=== PATIENT | male | born 1970 | race Caucasian/White ===

== ENCOUNTER 2017-05-12 19:07 | Emergency (ER) | payer MEDICAID, SELFPAY ==
[2017-05-12 19:11] VITALS: BP 117/82; PULSE 102; RESP 18; TEMP 37.5; O2SAT 97; BMI 23.6
--- NOTE | 2017-05-12 19:46 | HMH.EDGENADL ---
ED Disposition Clinical Impression: Influenza Disposition: Home, Self-Care Condition on Discharge: Good Prescriptions: Oseltamivir Phosphate [Tamiflu 75mg Capsule] 75 mg PO BID #10 cap Time of Disposition: 19:58 - Critical Care Critical Care Time: No Attestation: On 05/12/17, the high probability of a clinically significant, sudden or life threatening deterioration of the following system(s) required my full and direct attention, intervention and personal management. The time I documented below is in addition to time spent performing reported procedures but includes the following listed in this critical care notation. Medical Decision Making - Medical Records Medical records reviewed: Yes: I reviewed the patient's medical records. Vital Signs: 05/12/17 19:11 Temperature 99.5 F Temperature Source Oral Pulse Rate [Right Radial] 102 H Respiratory Rate 18 Blood Pressure [Right Arm] 117/82 Blood Pressure Mean [Right Arm] 93 Blood Pressure Source [Right Arm] Automatic Cuff Blood Pressure Position [Right Arm] Sitting 02 Sat by Pulse Oximetry 97 Oxygen Delivery Method Room Air - Lab Data Lab results reviewed: Yes: I reviewed the patient's lab results. Lab Results 05/12/17 19:20: Influenza Type A Ag Negative, Influenza Type B Ag Positive A - Aurelio Inquiry Pt receiving controlled substance: No - Reevaluation(s) Time: 19:30 Reevaluation #1: Upon reevaluation the patient appears medically stable, in mild distress only. Advised him of results obtained, need to alternate Motrin and Tylenol for fever control and drink plenty of fluids. We will start patient on instructed to follow-up with PCP if not better in 2-3 days. General Adult HPI - General Chief complaint: Nausea/Vomiting/Diarrhea Stated complaint: aching all over coughing, nausea Time Seen by Provider: 05/12/17 19:47 Mode of Arrival: EMS Source of Information: Patient Limitations: No Limitations Description of Symptoms (Recalled from ER Triage Doc. by RN): pt reports he is aching all over, coughing and feels like he is going to vomit - History of Present Illness HPI narrative: Patient is here with body aches, subjective fever, sore throat, cough and congestion for the past 2 days. MD complaint: Fever, sore throat, runny nose Onset (ago): day(s) (2) Location: face Severity: moderate Severity scale (1-10): 5 Quality: stabbing, aching Consistency: intermittent Relieving factors: none Exacerbating factors: movement (1) Associated symptoms: denies other symptoms - Related Data Home Medications Medication Instructions Recorded Confirmed Omeprazole Magnesium [Prilosec Otc 20 mg PO DAILY 05/12/17 05/12/17 20mg Tab] Previous Rx's Medication Instructions Recorded Oseltamivir Phosphate [Tamiflu 75 mg PO BID #10 cap 05/12/17 75mg Capsule] Allergies Allergy/AdvReac Type Severity Reaction Status Date / Time No Known Allergies Allergy Verified 05/12/17 19:15 [facility] History I have reviewed the patient's past medical history: Yes - *Social History Alcohol Intake: never - Psychiatric History Expresses thoughts of harming self/others: None Suicide Plan Description: No Plan ROS Obtained: Yes All systems reviewed & no additional complaints - Constitutional Constitutional: Reports body ache, Reports chills, Reports fatigue, Reports fever(s) - ENT Ears, Nose, Mouth, and Throat: Reports hoarseness, Reports nasal congestion, Reports post nasal drip, Reports sore throat Physical Exam - General General appearance: alert, in distress (Mild) - Head Head exam: atraumatic, normocephalic, normal inspection - Eye Eye exam: Present: normal appearance, PERRL, EOMI - ENT ENT exam: Present: normal oropharynx, mucous membranes moist, TM's normal bilaterally, normal external ear exam, other (Pharyngeal erythema, boggy nasal mucosa with yellowish discharge) - Neck Neck exam: Present: normal inspection, full ROM,
== END 2017-05-12 20:00 | disposition home or self-care (01) ==
PROVIDERS: Emergency Provider Emergency Medicine; Family Provider Emergency Medicine
DX: J11.1 Influenza due to unidentified influenza virus with other respiratory manifestations (principal)
CPT/HCPCS: 87275; 87276; 99282

== ENCOUNTER 2017-05-18 04:07 | Emergency (ER) | payer MEDICAID, SELFPAY ==
[2017-05-18 04:13] VITALS: BP 120/78; PULSE 98; RESP 18; TEMP 36.6; O2SAT 97; BMI 23.6
--- NOTE | 2017-05-18 05:01 | HMH.EDNVD ---
ED Disposition Clinical Impression: Vomiting Qualifiers: Vomiting type: vomiting of fecal matter Nausea presence: with nausea Qualified Code(s): R11.13 - Vomiting of fecal matter Disposition: Home, Self-Care Condition on Discharge: Good Instructions: DI for Nausea -- Adult Additional Instructions: fluids and see pcp for follow up Prescriptions: Ondansetron HCl [Zofran 4mg Tab] 4 mg PO Q8H #20 tab - Critical Care Critical Care Time: No Attestation: On 05/18/17, the high probability of a clinically significant, sudden or life threatening deterioration of the following system(s) required my full and direct attention, intervention and personal management. The time I documented below is in addition to time spent performing reported procedures but includes the following listed in this critical care notation. Medical Decision Making - Medical Records Medical records reviewed: Yes: I reviewed the patient's medical records. Vital Signs: 05/18/17 04:13 Temperature 97.9 F Temperature Source Oral Pulse Rate [Right Radial] 98 H Respiratory Rate 18 Blood Pressure [Right Arm] 120/78 Blood Pressure Mean [Right Arm] 92 Blood Pressure Source [Right Arm] Automatic Cuff Blood Pressure Position [Right Arm] Sitting 02 Sat by Pulse Oximetry 97 Oxygen Delivery Method Room Air - Lab Data Lab results reviewed: Yes: I reviewed the patient's lab results. Lab Results 05/18/17 04:50: WBC 3.2 L, RBC 4.39 L, Hgb 14.2, Hct 38.7 L, MCV 88.2, MCH 32.3 H, MCHC 36.6 H, RDW 13.4, Plt Count 128 L, MPV 7.6, Neut % (Auto) 58.5, Lymph % (Auto) 32.9, [place] % (Auto) 7.7, Eos % (Auto) 0.7, Baso % (Auto) 0.1, Neut # (Auto) 1.9, Lymph # (Auto) 1.1, [place] # (Auto) 0.3, Eos # (Auto) 0.0, Baso # (Auto) 0.0 05/18/17 04:50: Sodium 141, Potassium 3.6, Chloride 103, Carbon Dioxide 28, Anion Gap 13.6, BUN 10, Creatinine 0.93, Estimated Creat Clear 104, Estimated GFR 88, Est GFR ( Amer) 107, Glucose 118 H, Calcium 8.2 L, Total Bilirubin 1.3 H, AST 20, ALT 25, Alkaline Phosphatase 72, Total Protein 6.7, Albumin 3.7, Globulin 3.0, Albumin/Globulin Ratio 1.2 Result diagrams: 05/18/17 04:50 05/18/17 04:50 Orders (Tests/Meds): ED MEDICATIONS Generic Name Dose Route Start Last Admin Trade Name Sujit PRN Reason Stop Dose Admin Sodium Chloride 1,000 mls @ 999 mls/hr 05/18/17 05:00 05/18/17 04:51 Sod Chloride 0.9% 1000ml Bag IV 05/18/17 06:00 999 mls/hr .Q1H1M KP Administration - Aurelio Inquiry Pt receiving controlled substance: No Nausea/Vomiting/Diarrhea HPI - General Chief complaint: Nausea/Vomiting/Diarrhea Stated complaint: vomiting Time Seen by Provider: 05/18/17 05:01 Mode of Arrival: Ambulatory Source of Information: Patient, Medical Record Limitations: No Limitations Description of Symptoms (Recalled from ER Triage Doc. by RN): PT REPORTS VOMITING THAT STARTED AT 4 AM AND HE FEELS LIKE HES BURNING UP. - History of Present Illness HPI Narrative: pt with recent flu and finished tamiflu and had n/v carlee LEBLANC complaint: nausea, vomiting Onset (ago): day(s) Associated Abdominal Pain: No Severity: moderate - Related Data Previous Rx's Medication Instructions Recorded Ondansetron HCl [Zofran 4mg Tab] 4 mg PO Q8H #20 tab 05/18/17 Allergies Allergy/AdvReac Type Severity Reaction Status Date / Time No Known Allergies Allergy Verified 05/12/17 19:15 [facility] History I have reviewed the patient's past medical history: Yes - *Social History Alcohol Intake: never - Psychiatric History Expresses thoughts of harming self/others: None Suicide Plan Description: No Plan ROS Obtained: Yes All systems reviewed & no additional complaints - Constitutional Constitutional: Denies fever(s), Reports poor appetite - Eyes Eyes: Denies change in vision - ENT Ears, Nose, Mouth, and Throat: Denies sore throat - Cardiovascular Cardiovascular: Denies chest pain at rest - Respiratory Respiratory: No
--- NOTE | 2017-05-18 05:04 | ED_ITS ---
ED Disposition Clinical Impression: Vomiting Qualifiers: Vomiting type: vomiting of fecal matter Nausea presence: with nausea Qualified Code(s): R11.13 - Vomiting of fecal matter Disposition: Home, Self-Care Condition on Discharge: Good Instructions: DI for Nausea -- Adult Additional Instructions: fluids and see pcp for follow up Prescriptions: Ondansetron HCl [Zofran 4mg Tab] 4 mg PO Q8H #20 tab - Critical Care Critical Care Time: No Attestation: On 05/18/17, the high probability of a clinically significant, sudden or life threatening deterioration of the following system(s) required my full and direct attention, intervention and personal management. The time I documented below is in addition to time spent performing reported procedures but includes the following listed in this critical care notation. Medical Decision Making - Medical Records Medical records reviewed: Yes: I reviewed the patient's medical records. Vital Signs: 05/18/17 04:13 Temperature 97.9 F Temperature Source Oral Pulse Rate [Right Radial] 98 H Respiratory Rate 18 Blood Pressure [Right Arm] 120/78 Blood Pressure Mean [Right Arm] 92 Blood Pressure Source [Right Arm] Automatic Cuff Blood Pressure Position [Right Arm] Sitting 02 Sat by Pulse Oximetry 97 Oxygen Delivery Method Room Air - Lab Data Lab results reviewed: Yes: I reviewed the patient's lab results. Lab Results 05/18/17 04:50: WBC 3.2 L, RBC 4.39 L, Hgb 14.2, Hct 38.7 L, MCV 88.2, MCH 32.3 H, MCHC 36.6 H, RDW 13.4, Plt Count 128 L, MPV 7.6, Neut % (Auto) 58.5, Lymph % (Auto) 32.9, [place] % (Auto) 7.7, Eos % (Auto) 0.7, Baso % (Auto) 0.1, Neut # ( Auto) 1.9, Lymph # (Auto) 1.1, [place] # (Auto) 0.3, Eos # (Auto) 0.0, Baso # (Auto ) 0.0 05/18/17 04:50: Sodium 141, Potassium 3.6, Chloride 103, Carbon Dioxide 28, Anion Gap 13.6, BUN 10, Creatinine 0.93, Estimated Creat Clear 104, Estimated GFR 88, Est GFR ( Amer) 107, Glucose 118 H, Calcium 8.2 L, Total Bilirubin 1.3 H, AST 20, ALT 25, Alkaline Phosphatase 72, Total Protein 6.7, Albumin 3.7, Globulin 3.0, Albumin/Globulin Ratio 1.2 Result diagrams: 05/18/17 04:50 05/18/17 04:50 Orders (Tests/Meds): ED MEDICATIONS Generic Name Dose Route Start Last Admin Trade Name Freq PRN Reason Stop Dose Admin Sodium Chloride 1,000 mls @ 999 mls/hr 05/18/17 05:00 05/18/17 04:51 Sod Chloride 0.9% 1000ml Bag IV 05/18/17 06:00 999 mls/hr .Q1H1M KP Administration - Aurelio Inquiry Pt receiving controlled substance: No Nausea/Vomiting/Diarrhea HPI - General Chief complaint: Nausea/Vomiting/Diarrhea Stated complaint: vomiting Time Seen by Provider: 05/18/17 05:01 Mode of Arrival: Ambulatory Source of Information: Patient, Medical Record Limitations: No Limitations Description of Symptoms (Recalled from ER Triage Doc. by RN): PT REPORTS VOMITING THAT STARTED AT 4 AM AND HE FEELS LIKE HES BURNING UP. - History of Present Illness HPI Narrative: pt with recent flu and finished tamiflu and had n/v carlee LEBLANC complaint: nausea, vomiting Onset (ago): day(s) Associated Abdominal Pain: No Severity: moderate - Related Data Previous Rx's Medication Instructions Recorded Ondansetron HCl [Zofran 4mg Tab] 4 mg PO Q8H #20 tab 05/18/17 Allergies Allergy/AdvReac Type Severity Reaction Status Date / Time
[2017-05-18 05:11] LABS: Basophils % 0.1 % (0.1-2.0); Eosinophils % 0.7 % (0.1-12.0); Hematocrit 38.7 % (42.0-52.0); Hemoglobin 14.2 g/dL (14.1-18.0); Lymphocytes # 1.1 K/mm3 (0.7-4.5); Lymphocytes % 32.9 K/mm3 (10-50); Mean Corpuscular HGB Conc 36.6 g/dL (31.8-35.4); Mean Corpuscular Hemoglobin 32.3 pg (27.0-31.2); Mean Corpuscular Volume 88.2 fl (80-94); Mean Platelet Volume 7.6 fl (7.4-10.4); Monocytes # 0.3 K/mm3 (0.1-1.0); Monocytes % 7.7 % (1.7-9.3); Neutrophils # 1.9 K/mm3 (1.8-7.8); Neutrophils % 58.5 % (37.0-80.0); Platelet Count 128 K/mm3 (142-424); Red Blood Count 4.39 M/mm3 (4.60-6.20); Red Cell Distribution Width 13.4 % (11.5-17.5); White Blood Count 3.2 K/mm3 (4.8-10.8)
[2017-05-18 05:12] LABS: Alanine Aminotransferase 25 U/L (12-78); Albumin Level 3.7 gm/dL (3.4-5.0); Albumin/Globulin Ratio 1.2 (1.1-1.8); Alkaline Phosphatase 72 U/L (46-116); Anion Gap 13.6 mEq/L (5-15); Aspartate Amino Transferase 20 U/L (15-37); Bilirubin,Total 1.3 mg/dL (0.2-1.0); Blood Urea Nitrogen 10 mg/dL (7-18); Calcium 8.2 mg/dL (8.5-10.1); Carbon Dioxide 28 mmol/L (21.0-32.0); Chloride 103 mmol/L (98-107); Creatinine Clearance Estimated 104 mL/min (0-300); Creatinine,Serum 0.93 mg/dL (0.70-1.30); Estimated Glomerular Filt Rate 88 ml/min (>60); GFR (African American) 107 ML/MIN (>60); Glucose 118 mg/dL (74-106); Potassium 3.6 mmoL/L (3.5-5.1); Sodium 141 mmol/L (136-145); Total Protein,Serum 6.7 gm/dL (6.4-8.2)
== END 2017-05-18 05:18 | disposition home or self-care (01) ==
PROVIDERS: Emergency Provider Emergency Medicine; Family Provider Emergency Medicine
DX: R11.13 Vomiting of fecal matter (principal); R19.7 Diarrhea, unspecified
CPT/HCPCS: 80053; 85025; 96365; 99282

== ENCOUNTER → 2017-07-13 15:06 | Outpatient (CLI) | payer MEDICAID, SELFPAY ==
[2017-07-13 17:55] LABS: Alanine Aminotransferase 20 U/L (12-78); Albumin Level 4.4 gm/dL (3.4-5.0); Albumin/Globulin Ratio 1.5 (1.1-1.8); Alkaline Phosphatase 71 U/L (46-116); Anion Gap 8.2 mEq/L (5-15); Aspartate Amino Transferase 16 U/L (15-37); Bilirubin,Total 1.7 mg/dL (0.2-1.0); Blood Urea Nitrogen 17 mg/dL (7-18); Calcium 9.2 mg/dL (8.5-10.1); Carbon Dioxide 31 mmol/L (21.0-32.0); Chloride 103 mmol/L (98-107); Creatinine,Serum 1.03 mg/dL (0.70-1.30); Estimated Glomerular Filt Rate 78 ml/min (>60); GFR (African American) 95 ML/MIN (>60); Globulin 2.9 gm/dl (1.3-3.2); Glucose 99 mg/dL (74-106); Lipase 137 u/L (73-393); Potassium 4.2 mmoL/L (3.5-5.1); Sodium 138 mmol/L (136-145); Total Protein,Serum 7.3 gm/dL (6.4-8.2)
[2017-07-13 18:24] LABS: Basophils % 0.4 % (0.1-2.0); Eosinophils % 0.7 % (0.1-12.0); Hematocrit 45.9 % (42.0-52.0); Hemoglobin 16.4 g/dL (14.1-18.0); Lymphocytes # 1.9 K/mm3 (0.7-4.5); Lymphocytes % 31.1 K/mm3 (10-50); Mean Corpuscular HGB Conc 35.8 g/dL (31.8-35.4); Mean Corpuscular Hemoglobin 32.2 pg (27.0-31.2); Mean Platelet Volume 7.7 fl (7.4-10.4); Monocytes # 0.4 K/mm3 (0.1-1.0); Monocytes % 5.7 % (1.7-9.3); Neutrophils # 3.8 K/mm3 (1.8-7.8); Neutrophils % 62.1 % (37.0-80.0); Platelet Count 179 K/mm3 (142-424); Red Blood Count 5.09 M/mm3 (4.60-6.20); Red Cell Distribution Width 12.8 % (11.5-17.5); White Blood Count 6.2 K/mm3 (4.8-10.8)
== END ==
PROVIDERS: Visit Provider Emergency Medicine
DX: R53.1 Weakness (principal)
CPT/HCPCS: 80053; 83690; 85025

== ENCOUNTER → 2017-08-09 09:24 | Outpatient (CLI) | payer MEDICAID, SELFPAY ==
--- NOTE | 2017-08-09 09:27 | US_ITS ---
HISTORY: ITS.REASON: RUQ pain ORDERING PHYSICIAN: Ronald Hoffman MD PATIENT AGE: 46 years FINDINGS: Prior cholecystectomy. No ductal dilatation. Common bile duct measures 2 mm. PANCREAS: Unremarkable. No obvious mass or abnormal fluid collection. No ductal dilatation LIVER: No focal liver lesions demonstrated. Homogeneous echogenicity. No intrahepatic biliary ductal dilatation evident RIGHT KIDNEY: Unremarkable. Normal size and echogenicity. No hydronephrosis GALLBLADDER: Surgically absent. IMPRESSION: Prior cholecystectomy. Otherwise negative right upper quadrant ultrasound
== END ==
PROVIDERS: Family Provider Emergency Medicine; PCP Emergency Medicine; Visit Provider Emergency Medicine
DX: R10.11 Right upper quadrant pain (principal)
CPT/HCPCS: 76705

== ENCOUNTER 2020-01-06 16:54 | Emergency (ER) | payer OTHER, SELFPAY ==
[2020-01-06 17:23] VITALS: BP 120/80; PULSE 98; RESP 12; TEMP 37; O2SAT 97; BMI 27.7
--- NOTE | 2020-01-06 17:46 | HMH.EDUTC ---
[facility] [place] Disposition Clinical Impression: Muscle spasm Disposition: Home, Self-Care Condition on Discharge: Good Instructions: DI for Muscle Spasm, Naproxen, Cyclobenzaprine Additional Instructions: *Naproxen as prescribed as needed for pain/inflammation *Not additional anti-inflammatory like motrin, aleve, advil with the above amount of Naproxen. You can still take Tylenol every 4 hours as needed if you need something else for pain *Ice 20 minutes every 2 hours for the first 48 hours after the initial injury followed by moist heat every 20 minutes 3-4 times a day to affected area *Muscle relaxer every 8 hours as needed for muscle spasms but remember, it WILL cause drowsiness You cannot take it and drive, operate machinery or care for small children. *Keep this area active, no movement leads to more stiffness, However take it easy and avoid heavy lifting pushing or pulling *Follow up with you family doctor if no improvement for further treatment Return if needed Straight to ER if any life threatening symptoms Prescriptions: Cyclobenzaprine HCl [Flexeril 10mg tablet] 10 mg PO TID PRN #12 tab PRN Reason: Muscle Spasm [facility] Nap[facility]en [Naproxen 500mg tab] 500 mg PO BID PRN 7 Days #14 tab PRN Reason: Moderate Pain Transmission Status: Pending to [facility] Referrals: Ronald Hoffman MD [Primary Care Provider] - As needed Time of Disposition: 17:53 Medical Decision Making - Aurelio Inquiry Pt receiving controlled substance: No Aurelio was queried for this patient: No Vital Signs: 01/06/20 17:23 Temperature 98.6 F Temperature Source Oral Pulse Rate [Right Brachial] 98 H Respiratory Rate 12 Blood Pressure [Right Arm] 120/80 Blood Pressure Mean [Right Arm] 93 Blood Pressure Source [Right Arm] Automatic Cuff Blood Pressure Position [Right Arm] Sitting 02 Sat by Pulse Oximetry 97 Oxygen Delivery Method Room Air [facility] [place] HPI - General Stated complaint: Left Shoulder pain Time Seen by Provider: 01/06/20 17:46 Mode of Arrival: Ambulatory Source of Information: Patient Limitations: No Limitations Description of Symptoms (Recalled from Triage Doc. by RN): PATIENT C/O LEFT SHOULDER PAIN THAT OCCASIONALLY RADIATES DOWN HIS ARM. 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 States that he feels like he is having muscle spasms in his left shoulder and radiates down into left shoulder and upper arm at times State that it feels tight and he has not fallen or did anything to hurt it States that it was fine and he woke up with it feeling stiff and having spasms - Related Data Previous Rx's Medication Instructions Recorded Cyclobenzaprine HCl [Flexeril 10mg 10 mg PO TID PRN #12 tab 01/06/20 tablet] Naproxen [Naproxen 500mg tab] 500 mg PO BID PRN 7 Days #14 tab 01/06/20 Allergies Allergy/AdvReac Type Severity Reaction Status Date / Time No Known Allergies Allergy Verified 11/13/19 14:57 - Worker's Comp Is this a Worker's Comp case?: No [facility] History - Hepatitis A Screen Drug use history?: No High risk sexual behaviors?: No History of sexually transmitted infection?: No Currently employed?: No Childcare worker?: No Do you have indoor plumbing?: Yes Do you have electricity?: Yes Attestation statement:: This patient has been screened for Hepatitis A risk factors. I have reviewed the patient's past medical history: Yes Medical History: Reports:: Gastroesophageal Reflux Disease(GERD) Denies:: Cancer, Diabetes Mellitus Type 1, Diabetes Mellitus Type 2, MRSA Comment: stomach issues Laterality Cases: Bilateral: Tonsil
[2020-01-06 17:54] VITALS: BP 120/80; PULSE 98; RESP 12; TEMP 37; O2SAT 97
== END 2020-01-06 17:58 | disposition home or self-care (01) ==
PROVIDERS: Emergency Provider Nurse Practitioner; PCP Emergency Medicine
DX: M62.838 Other muscle spasm (principal); M25.512 Pain in left shoulder; K21.9 Gastro-esophageal reflux disease without esophagitis; Z90.09 Acquired absence of other part of head and neck
CPT/HCPCS: 99201

== ENCOUNTER 2020-02-11 14:15 | Emergency (ER) | payer OTHER, SELFPAY ==
[2020-02-11 14:16] VITALS: BP 128/85; PULSE 79; RESP 19; TEMP 36.5; O2SAT 97; BMI 26.6
--- NOTE | 2020-02-11 14:28 | HMH.EDGENADL ---
ED Disposition Clinical Impression: Shoulder pain Qualifiers: Chronicity: chronic Laterality: left Qualified Code(s): M25.512 - Pain in left shoulder Rotator cuff arthropathy Qualifiers: Laterality: left Qualified Code(s): M12.812 - Other specific arthropathies, not elsewhere classified, left shoulder Disposition: Home, Self-Care Condition on Discharge: Good Instructions: DI for Rotator Cuff Injury Additional Instructions: Follow-up with orthopedics in clinic for further evaluation of possible rotator cuff injury/tear. Take Tylenol/ibuprofen as needed for pain. Wear a sling for comfort as needed. Referrals: Ronald Hoffman MD [Primary Care Provider] - Jose Barclay MD [Staff Physician] - - Critical Care Critical Care Time: No Attestation: On , the high probability of a clinically significant, sudden or life threatening deterioration of the following system(s) required my full and direct attention, intervention and personal management. The time I documented below is in addition to time spent performing reported procedures but includes the following listed in this critical care notation. Medical Decision Making - Aurelio Inquiry Pt receiving controlled substance: No Vital Signs: 02/11/20 14:16 Temperature 97.7 F Temperature Source Oral Pulse Rate [Left Radial] 79 Respiratory Rate 19 Blood Pressure [Right Arm] 128/85 Blood Pressure Mean [Right Arm] 99 Blood Pressure Source [Right Arm] Automatic Cuff Blood Pressure Position [Right Arm] Sitting 02 Sat by Pulse Oximetry 97 Oxygen Delivery Method Room Air Medical Decision Narrative: 49-year-old male who comes into the emergency department for evaluation of left shoulder pain that has been chronic for the past month. Has been seen in urgent care and by primary care provider who diagnosed him with possible rotator cuff injury/musculoskeletal strain. Denies any new trauma since prior imaging. Physical exam significant for tenderness palpation of left shoulder and upper scapula with no visible bony abnormalities or skin changes. No additional imaging indicated at this time. Provided patient with a sling for comfort and provided referral to orthopedics clinic. Advised on return cautions and to continue to take [id number] pain medications as needed. Patient voiced understanding is agreeable plan to discharge. General Adult HPI - General Stated complaint: lt shoulder pain no ao Time Seen by Provider: 02/11/20 14:25 Mode of Arrival: Ambulatory Source of Information: Patient Limitations: No Limitations Description of Symptoms (Recalled from ER Triage Doc. by RN): pt c/o left shoulder pain that goes to his left wrist. Denies any injury. Has seen his PCP and [facility] with no relief in pain. - History of Present Illness HPI narrative: 49-year-old male who comes into the emergency department for evaluation of left shoulder pain that has been present for the past month. Patient states he was seen 1 month ago in urgent care and told that he had a sprained shoulder or possible rotator cuff injury and was given muscle relaxers. States that he has continued to take Tylenol/Motrin along with the muscle relaxers without significant changes in symptoms. Reports continued pain with range of motion of the left shoulder. Denies any new injuries or trauma. Denies any chest pain, difficulty breathing, fevers, chills, rashes, numbness, or any other symptoms at this time. - Related Data Previous Rx's Medication Instructions Recorded Cyclobenzaprine HCl [Flexeril 10mg 10 mg PO TID PRN #12 tab 01/06/20 tablet] Naproxen [Naproxen 500mg tab] 500 mg PO BID PRN 7 Days #14 tab 01/06/20 Allergies Allergy/AdvReac Type Severity Reaction Status Date / Time No Known Allergies Allergy Verified 11/13/19 14:57 [facility] History - Hepatitis A Screen Drug use history?: No High risk sexual behaviors?: No History of sexually transmitted infection?: No Currently
[2020-02-11 14:37] VITALS: BP 141/90; PULSE 89; RESP 19; TEMP 36.5; O2SAT 98
== END 2020-02-11 14:38 | disposition home or self-care (01) ==
LOC: ER 14:34
PROVIDERS: Emergency Provider Emergency Medicine; PCP Emergency Medicine
DX: M25.512 Pain in left shoulder (principal); M12.812 Other specific arthropathies, not elsewhere classified, left shoulder; K21.9 Gastro-esophageal reflux disease without esophagitis
CPT/HCPCS: 99281

== ENCOUNTER 2020-02-15 04:32 | Emergency (ER) | payer OTHER, SELFPAY ==
[2020-02-15 04:37] VITALS: BP 127/81; PULSE 79; RESP 16; TEMP 36.8; O2SAT 97; BMI 25.7
--- NOTE | 2020-02-15 04:42 | XR_ITS ---
PROCEDURE: XR SHOULDER LT MIN 2V CLINICAL INDICATION: pain COMPARISON: CR [id number] VIEWS from 09/10/2014 FINDINGS: No fracture or dislocation. No lytic or blastic change. There is normal mineralization. The joint spaces are well-preserved. No significant degenerative/arthritic changes. No erosive changes evident. Other findings:None. IMPRESSION: No acute findings. Dictated by: Luis Pinedo MD 02/15/2020 05:18 Luis Pinedo MD in [place] 02/15/2020 05:18
--- NOTE | 2020-02-15 04:58 | HMH.EDGENADL ---
ED Disposition Clinical Impression: Rotator cuff tendinitis Qualifiers: Laterality: left Qualified Code(s): M75.82 - Other shoulder lesions, left shoulder Disposition: Home, Self-Care Condition on Discharge: Good Instructions: DI for Shoulder Pain Additional Instructions: Ibuprofen for pain. Prednisone as prescribed. Follow-up with Dr. Cutler in the office as scheduled. Prescriptions: Ibuprofen [Ibuprofen 800mg Tab] 800 mg PO Q8HP PRN #15 tab PRN Reason: Moderate Pain Transmission Status: Pending to [facility] predniSONE [Prednisone 20mg Tab] 20 mg PO BID #10 tab Transmission Status: Pending to [facility] Referrals: Ronald Hoffman MD [Primary Care Provider] - - Critical Care Critical Care Time: No Attestation: On 02/15/20, the high probability of a clinically significant, sudden or life threatening deterioration of the following system(s) required my full and direct attention, intervention and personal management. The time I documented below is in addition to time spent performing reported procedures but includes the following listed in this critical care notation. Medical Decision Making - Medical Records Medical records reviewed: Yes: I reviewed the patient's medical records. MR Comment: Seen by his PCP on 11/13/2019 for bilateral shoulder pain. Given an injection of Toradol and Decadron which he says helped. Seen in the urgent treatment center here on 01/06/2020 for left shoulder pain. Treated with naproxen and Flexeril. Seen here in the emergency department on 02/11/2020 for left shoulder pain. No medication treatment. Referred to orthopedics. Has an appointment to see Dr. Cutler for orthopedic evaluation on 03/04/2020. - Aurelio Inquiry Pt receiving controlled substance: No Vital Signs: 02/15/20 04:37 Temperature 98.2 F Temperature Source Oral Pulse Rate [Right Brachial] 79 Respiratory Rate 16 Blood Pressure [Right Arm] 127/81 Blood Pressure Mean [Right Arm] 96 Blood Pressure Source [Right Arm] Automatic Cuff Blood Pressure Position [Right Arm] Sitting 02 Sat by Pulse Oximetry 97 Oxygen Delivery Method Room Air Orders (Tests/Meds): ORDERS Category Date Time Status XR shoulder LT min 2V Stat Exams 02/15/20 04:42 Taken - Radiology Data #1 Image(s): Shoulder Image Reviewed: Yes I reviewed the patient's radiology image Preliminary Findings: Normal/NAD Medical Decision Narrative: The patient has some features of a cervical radiculopathy, but mostly has features of rotator cuff pathology. I favor shoulder pathology as opposed to cervical pathology based on his examination findings. However, corticosteroid should help either. General Adult HPI - General Chief complaint: PAIN Stated complaint: L shoulder pain Time Seen by Provider: 02/15/20 05:05 Mode of Arrival: Family Vehicle Limitations: No Limitations Description of Symptoms (Recalled from ER Triage Doc. by RN): pt states he was seen in the ed last week and diagnosed with a possible torn rotator cuff and to follow up with dr cutler. however, he hasn't seen dr cutler yet and the pain is getting worse. taking tylenol and ibuprofen for pain control without relief; no new injury - History of Present Illness HPI narrative: Patient has been having pain in his left shoulder for months. In the past 4 days it has worsened. It is there most of the time. It sometimes wakes him up. It radiates into his left clavicle, left shoulder blade, into his neck, and down his left arm. There is no numbness or tingling. He has increased pain with movement of his left shoulder. No unusual activity or trauma. 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 No other physical activity. No chest pain, no shortness of breath. - Related Data Previous Rx's Medication Instructions Recorded Cyclobenzaprine HCl [Flexeril 10mg 10 mg PO TID PRN #12 tab 01/06/20 tablet] Naproxen [Naproxen 500mg tab]
[2020-02-15 05:40] VITALS: BP 130/78; PULSE 80; RESP 14; TEMP 36.8; O2SAT 98
== END 2020-02-15 05:42 | disposition home or self-care (01) ==
PROVIDERS: Emergency Provider Emergency Medicine; PCP Emergency Medicine
DX: M75.82 Other shoulder lesions, left shoulder (principal); K21.9 Gastro-esophageal reflux disease without esophagitis
CPT/HCPCS: 73030; 96372; 99282

== ENCOUNTER 2020-03-17 00:49 | Emergency (ER) | payer OTHER, SELFPAY ==
[2020-03-17 00:50] VITALS: BP 115/81; PULSE 81; RESP 16; TEMP 36.7; O2SAT 97; BMI 26.6
--- NOTE | 2020-03-17 01:22 | XR_ITS ---
PROCEDURE: XR SHOULDER LT MIN 2V CLINICAL INDICATION: left shoulder pain COMPARISON: CR [id number] VIEWS from 09/10/2014 CR XR SHOULDER LT MIN 2V from 02/15/2020 FINDINGS: No fracture or dislocation. No lytic or blastic change. There is normal mineralization. The joint spaces are well-preserved. No significant degenerative/arthritic changes. No erosive changes evident. Other findings:None. IMPRESSION: No acute findings. Dictated by: Luis Pinedo MD 03/17/2020 05:20 Luis Pinedo MD in [place] 03/17/2020 05:20
--- NOTE | 2020-03-17 01:25 | HMH.EDUPEXT ---
ED Disposition Clinical Impression: Shoulder pain Qualifiers: Chronicity: acute Laterality: left Qualified Code(s): M25.512 - Pain in left shoulder Disposition: Home, Self-Care Condition on Discharge: Good Instructions: DI for Shoulder Pain Additional Instructions: use meds and see pcp or ortho for follow up Prescriptions: Meloxicam [Mobic 15 mg tab] 15 mg PO DAILY #7 tab Transmission Status: Pending to [id number] Referrals: Ronald Hoffman MD [Primary Care Provider] - - Critical Care Critical Care Time: No Attestation: On 03/17/20, the high probability of a clinically significant, sudden or life threatening deterioration of the following system(s) required my full and direct attention, intervention and personal management. The time I documented below is in addition to time spent performing reported procedures but includes the following listed in this critical care notation. Medical Decision Making - Medical Records Medical records reviewed: Yes: I reviewed the patient's medical records. - Aurelio Inquiry Pt receiving controlled substance: No Vital Signs: 03/17/20 00:50 Temperature 98.1 F Temperature Source Oral Pulse Rate [Left Radial] 81 Respiratory Rate 16 Blood Pressure [Right Arm] 115/81 Blood Pressure Mean [Right Arm] 92 Blood Pressure Source [Right Arm] Automatic Cuff Blood Pressure Position [Right Arm] Sitting 02 Sat by Pulse Oximetry 97 Oxygen Delivery Method Room Air - Lab Data Lab results reviewed: Yes: I reviewed the patient's lab results. Orders (Tests/Meds): ORDERS Category Date Time Status XR shoulder LT min 2V Stat Exams 03/17/20 01:22 Ordered - Radiology Data #1 Image(s): Shoulder Image Reviewed: Yes I reviewed the patient's radiology image Preliminary Findings: No Fracture Seen Upper Extremity HPI - General Chief Complaint: Extremity Injury, Upper Stated Complaint: knot on left arm Time Seen by Provider: 03/17/20 01:00 Mode of Arrival: Ambulatory Source of Information: Patient, Medical Record Limitations: Physical Limitations Description of Symptoms (Recalled from ER Triage Doc. by RN): pt stated he was moving heavy furniture earlier in the week and felt a pop in his left shoulder. pt stated he has a history of popping in his shoulders but now reports pain with movement over the last 3 days and stated he i feel like there is a knot in the back of my left arm when i move it. pt denies any other pain at this time - History of Present Illness HPI narrative: after lifting had pop and pain lt shoulder MD complaint: injury to: left, shoulder Onset (ago): day(s) Other Extremity Injury: Left: shoulder Handedness: right Place: home Severity: moderate Context: injury Associated symptoms: denies other symptoms - Related Data Previous Rx's Medication Instructions Recorded Meloxicam [Mobic 15 mg tab] 15 mg PO DAILY #7 tab 03/17/20 Allergies Allergy/AdvReac Type Severity Reaction Status Date / Time No Known Allergies Allergy Verified 03/17/20 01:31 [facility] History - Hepatitis A Screen Drug use history?: No High risk sexual behaviors?: No History of sexually transmitted infection?: No Currently employed?: No Childcare worker?: No Do you have indoor plumbing?: No Do you have electricity?: Yes Attestation statement:: This patient has been screened for Hepatitis A risk factors. I have reviewed the patient's past medical history: Yes Medical History: Reports:: Gastroesophageal Reflux Disease(GERD) Denies:: Cancer, Diabetes Mellitus Type 1, Diabetes Mellitus Type 2, MRSA Comment: stomach issues Laterality Cases: Bilateral: Tonsillectomy Other Surgeries: Yes: Other (gallbladder) Amputation: No Fractures: No Comment: coleycystectomy - Social History Smoking Status: Never smoker Tobacco Type: smokeless tobacco # Packs/Day (cigarettes): 1 Alcohol Intake: never Alcohol Intake Frequency:: other Substance Use Ty
--- NOTE | 2020-03-17 01:29 | PC.NURSE ---
Pt returned from xray
[2020-03-17 01:37] VITALS: BP 115/81; PULSE 81; RESP 16; TEMP 36.7; O2SAT 97
== END 2020-03-17 01:39 | disposition home or self-care (01) ==
PROVIDERS: Emergency Provider Emergency Medicine; PCP Emergency Medicine
DX: M25.512 Pain in left shoulder (principal); K21.9 Gastro-esophageal reflux disease without esophagitis
CPT/HCPCS: 73030; 99282

== ENCOUNTER → 2020-05-02 15:57 | Outpatient (CLI) | payer OTHER, SELFPAY | PROVIDERS: PCP Emergency Medicine; Visit Provider Orthopaedic Surgery | DX: M25.512 Pain in left shoulder (principal) ==

== ENCOUNTER → 2020-05-09 07:32 | Outpatient (CLI) | payer OTHER, SELFPAY ==
--- NOTE | 2020-05-09 07:32 | MR_ITS ---
PROCEDURE: MR SHOULDER LT WO CON CLINICAL INDICATION: LT SHOULDER PAIN, NO INJURY, PRIOR XRAYS. COMPARISON: CR XR SHOULDER LT MIN 2V from 03/17/2020 TECHNIQUE: Routine multiplanar multi echo sequences are performed without gadolinium enhancement. FINDINGS: There is mild subacromial stenosis with downsloping acromion with a subacromial space of mm. No evidence of rotator cuff tear. No labral tear evident. There are mild osteoarthritic changes of the glenohumeral joint. Small amount fluid is present in the bicipital tendon she and may suggest mild tenosynovitis. The bicipital tendon is in place. IMPRESSION: Mild subacromial stenosis with mild osteoarthritis and suspected mild tenosynovitis of the bicipital tendon. No evidence of rotator cuff tear or labral tear. Dictated by: Luis Pinedo MD 05/10/2020 08:35 Luis Pinedo MD in [place] 05/10/2020 08:35
== END ==
PROVIDERS: PCP Emergency Medicine; Visit Provider Orthopaedic Surgery
DX: S46.912A Strain of unspecified muscle, fascia and tendon at shoulder and upper arm level, left arm, initial encounter (principal)
CPT/HCPCS: 73221

== ENCOUNTER 2020-10-05 09:58 | Emergency (ER) | payer OTHER, SELFPAY ==
[2020-10-05 10:00] VITALS: BP 131/81; PULSE 86; RESP 19; TEMP 36.8; O2SAT 99; BMI 27.6
--- NOTE | 2020-10-05 10:19 | HMH.EDUTC ---
[facility] [place] Disposition Clinical Impression: Spider bite Qualifiers: Encounter type: initial encounter Injury intent: undetermined intent Qualified Code(s): T63.304A - Toxic effect of unspecified spider venom, undetermined, initial encounter Disposition: Home, Self-Care Condition on Discharge: Good Instructions: Trimethoprim/Sulfamethoxazole (Alternative Therapy), Mupirocin, DI for Spider Bites Additional Instructions: *Start antibiotic(s) immediately and be sure to take as ordered for the FULL length of time although you may be feeling better or start to see improvement in the next 24-48 hours *Monitor closely. Outlined redness so that you can monitor easier. Follow up immediately for new or worsening symptoms including but not limited to redness, swelling, streaking from site fever or chills. *Warm compress 15 minutes 3-4 times day *Never squeeze or pop these on your own. Seek immediate medical attention next time this occurs *Monitor Temp. Tylenol every 4 hours as needed and ibuprofen every 6 hours as needed (as long as your primary care doctor has told you that it is ok to take both. For fever, aches, pain. ER if no less that 101 despite Tylenol and ibuprofen Follow up with your family doctor/primary care physician in the next 48-72 hours if no improvement Prescriptions: Sulfamethoxazole/Trimethoprim [Bactrim DS tablet] 1 each PO BID 7 Days #14 tab Transmission Status: Received by [facility] # Mupirocin [Bactroban 2% Ointment 22gm tube] 1 applicatio TP TID 10 Days #1 tube Transmission Status: Received by [facility] # cephALEXin [cephALEXin 500mg capsule*] 500 mg PO Q6H 7 Days #28 cap Transmission Status: Received by [facility] # Referrals: Ronald Hoffman MD [Primary Care Provider] - As needed Time of Disposition: 10:27 Medical Decision Making - Aurelio Inquiry Pt receiving controlled substance: No Aurelio was queried for this patient: No Vital Signs: 10/05/20 10:00 10/05/20 10:40 Temperature 98.3 F 98.3 F Temperature Source Oral Pulse Rate 86 Pulse Rate [Right Brachial] 86 Respiratory Rate 19 19 Blood Pressure 131/81 Blood Pressure [Right Arm] 131/81 Blood Pressure Mean [Right Arm] 97 Blood Pressure Source [Right Arm] Automatic Cuff Blood Pressure Position [Right Arm] Sitting 02 Sat by Pulse Oximetry 99 Oxygen Delivery Method Room Air [facility] [place] HPI - General Stated complaint: spider bite on Rt foot Time Seen by Provider: 10/05/20 10:20 Mode of Arrival: Ambulatory Source of Information: Patient Limitations: No Limitations Description of Symptoms (Recalled from Triage Doc. by RN): PATIENT C/O SPIDER BITE TO TOP OF RIGHT FOOT X 2 DAYS HEENT Symptoms (Recalled from RN notes): No Resp Symptoms (Recalled from RN notes): No Skin Symptoms (Recalled from RN notes): Yes MS Symptoms (Recalled from RN notes): No Functional Status (Recalled from RN notes): WNL - History of Present Illness Provider Complaint: Patient state that he has been having problems with spiders in his house State that he thinks one bite him on the top of his right foot State that he has had a red raised area there that has had some drianage from it for the past couple of day State that the redness around the bite is starting to spread so he came in to get checked - Related Data Previous Rx's Medication Instructions Recorded Mupirocin [Bactroban 2% Ointment 1 applicatio TP TID 10 Days #1 tube 10/05/20 22gm tube] Sulfamethoxazole/Trimethoprim 1 each PO BID 7 Days #14 tab 10/05/20 [Bactrim DS tablet] cephALEXin [cephALEXin 500mg 500 mg PO Q6H 7 Days #28 cap 10/05/20 capsule*] Allergies Allergy/AdvReac Type Severity Reaction Status Date / Time No Known Allergies Allergy Verified 07/07/20 14:16 - Worker's Comp Is this a Worker's Comp case?: No [facility] History - Hepatitis A Screen Drug use history?: No High risk sexual behaviors?: No History of sexually transmitted
[2020-10-05 10:40] VITALS: BP 131/81; PULSE 86; RESP 19; TEMP 36.8; O2SAT 99
== END 2020-10-05 10:44 | disposition home or self-care (01) ==
PROVIDERS: Emergency Provider Nurse Practitioner; PCP Emergency Medicine
DX: T63.301A Toxic effect of unspecified spider venom, accidental (unintentional), initial encounter (principal); K21.9 Gastro-esophageal reflux disease without esophagitis; S90.861A Insect bite (nonvenomous), right foot, initial encounter; W57.XXXA Bitten or stung by nonvenomous insect and other nonvenomous arthropods, initial encounter; Y92.019 Unspecified place in single-family (private) house as the place of occurrence of the external cause
CPT/HCPCS: 99202; G0463

== ENCOUNTER 2020-12-26 01:45 | Emergency (ER) | payer OTHER, SELFPAY ==
[2020-12-26 01:58] VITALS: BP 116/72; PULSE 92; RESP 18; TEMP 36.9; O2SAT 96; BMI 28.2
--- NOTE | 2020-12-26 02:13 | XR_ITS ---
PROCEDURE INFORMATION: Exam: XR Chest Exam date and time: 12/26/2020 2:13 AM Age: 50 years old Clinical indication: Left-sided; Patient HX: Left sided chest pain TECHNIQUE: Imaging protocol: XR of the chest. Views: 2 views. COMPARISON: CR XR CHEST 2V 02/08/2019 1:10 AM FINDINGS: Lungs: Biapical scarring. Mild chronic interstitial coarsening. Mild linear subsegmental atelectasis near the bilateral lung bases. No consolidation. No overt pulmonary edema. Pleural spaces: No pleural effusion. No pneumothorax. Heart/Mediastinum: Normal heart size. Bones/joints: Unremarkable. IMPRESSION: Mild bibasilar atelectasis.
--- NOTE | 2020-12-26 02:13 | HMH.EDGENADL ---
ED Disposition Clinical Impression: Arthralgia Qualifiers: Joint pain location: unspecified Qualified Code(s): M25.50 - Pain in unspecified joint Disposition: Home, Self-Care Condition on Discharge: Good Instructions: DI for Acute Pain -- Adult Additional Instructions: use meds and see pcp as needed Prescriptions: Meloxicam [Mobic 15 mg tab] 15 mg PO DAILY #10 tab Transmission Status: Pending to [facility] #[id number] Referrals: Ronald Hoffman MD [Primary Care Provider] - - Critical Care Critical Care Time: No Attestation: On 12/26/20, the high probability of a clinically significant, sudden or life threatening deterioration of the following system(s) required my full and direct attention, intervention and personal management. The time I documented below is in addition to time spent performing reported procedures but includes the following listed in this critical care notation. Medical Decision Making - Medical Records Medical records reviewed: Yes: I reviewed the patient's medical records. - Aurelio Inquiry Pt receiving controlled substance: No Vital Signs: 12/26/20 01:58 Temperature 98.4 F Temperature Source Oral Pulse Rate [Right] 92 H Respiratory Rate 18 Blood Pressure [Right Arm] 116/72 Blood Pressure Mean [Right Arm] 86 Blood Pressure Source [Right Arm] Automatic Cuff Blood Pressure Position [Right Arm] Supine 02 Sat by Pulse Oximetry 96 Oxygen Delivery Method Room Air - Lab Data Lab results reviewed: Yes: I reviewed the patient's lab results. Lab Results 12/26/20 02:10: Urine Color Yellow, Urine Appearance Clear, Urine pH 6.5, Ur Specific [place] 1.020, Urine Protein Negative, Urine Glucose (UA) Negative, Urine Ketones Negative, Urine Blood Negative, Urine Nitrate Negative, Urine Bilirubin Negative, Urine Urobilinogen 0.2, Ur Leukocyte Esterase Negative, Urine WBC Occasional, Ur Squamous Epith Cells Occasional, Urine Bacteria Trace 12/26/20 02:15: WBC 3.7 L, RBC 4.30 L, Hgb 14.1, Hct 40.9 L, MCV 95.3 H, MCH 32.9 H, MCHC 34.5, RDW 13.7, Plt Count 139 L, MPV 8.5, Neut % (Auto) 57.8, Lymph % (Auto) 30.8, [place] % (Auto) 10.1 H, Eos % (Auto) 0.6, Baso % (Auto) 0.8, Neut # (Auto) 2.1, Lymph # (Auto) 1.1, [place] # (Auto) 0.4, Eos # (Auto) 0.0, Baso # (Auto) 0.0 12/26/20 02:15: Sodium 141, Potassium 3.5, Chloride 103, Carbon Dioxide 29, Anion Gap 12.5, BUN 13, Creatinine 1.00, Estimated Creat Clear 111, Estimated GFR 80, Est GFR ( Amer) 97, Glucose 113 H, Calcium 8.9, Total Bilirubin 1.5 H, AST 23, ALT 12, Alkaline Phosphatase 59, Total Protein 6.3, Albumin 3.8, Globulin 2.5, Albumin/Globulin Ratio 1.5, Procalcitonin 0.060 12/26/20 02:15: Plasma/Serum Alcohol < 10 Result diagrams: 12/26/20 02:15 12/26/20 02:15 Orders (Tests/Meds): ED MEDICATIONS Generic Name Dose Route Start Last Admin Trade Name Freq PRN Reason Stop Dose Admin Sodium Chloride 1,000 mls @ 999 mls/hr 12/26/20 02:15 12/26/20 02:21 Sod Chlor 0.9% 1000ml Bag IV 12/26/20 03:15 999 mls/hr .Q1H1M KP Administration Discontinued Medications Generic Name Dose Route Start Last Admin Trade Name Freq PRN Reason Stop Dose Admin Ketorolac Tromethamine 30 mg 12/26/20 02:05 12/26/20 02:20 Ketorolac 30mg/Ml Vial IV 12/26/20 02:06 30 mg ONCE ONE Administration ORDERS Category Date Time Status CXR 2 view (NOT portable) [XR chest 2V] Stat Exams 12/26/20 02:13 Taken Complete Blood Count Auto Diff Stat Lab 12/26/20 02:15 Results Erythrocyte Sedimentation Rate Stat Lab 12/26/20 02:15 Results - Radiology Data #1 Image(s): Chest Image Reviewed: Yes I reviewed the patient's radiology image Preliminary Findings: Abnormal (see report ) Medical Decision Narrative: nonspecific changes General Adult HPI - General Chief complaint: PAIN Stated complaint: Left side pain rib cage area Time Seen by Provider: 12/26/20 02:05 Mode of Arrival: Ambulatory Source of Information: Patient
[2020-12-26 02:21] LABS: Microscopic, Urine URINE MICROSCOPIC (MICROSCOPIC)
[2020-12-26 02:22] LABS: Appearance,Urine CLEAR (Clear); Bilirubin,Urine Negative (Negative); Blood, Urine Negative (Negative); Color,Urine YELLOW (Yellow); Glucose,Urine (UA) Negative (Negative); Ketones,Urine Negative (Negative); Leukocyte Esterase,Urine Negative (Negative); Nitrate,Urine Negative (Negative); PH,Urine 6.5 (5.0-8.5); Protein,Urine Negative (Negative); Urobilinogen,Urine 0.2 EU/dl (0.2)
[2020-12-26 02:24] LABS: Basophils % 0.8 % (0.1-2.0); Eosinophils % 0.6 % (0.1-12.0); Hematocrit 40.9 % (42.0-52.0); Hemoglobin 14.1 g/dL (14.1-18.0); Lymphocytes # 1.1 K/mm3 (0.7-4.5); Lymphocytes % 30.8 % (10-50); Mean Corpuscular HGB Conc 34.5 g/dL (31.8-35.4); Mean Corpuscular Hemoglobin 32.9 pg (27.0-31.2); Mean Corpuscular Volume 95.3 fl (80-94); Mean Platelet Volume 8.5 fl (7.4-10.4); Monocytes # 0.4 K/mm3 (0.1-1.0); Monocytes % 10.1 % (1.7-9.3); Neutrophils # 2.1 K/mm3 (1.8-7.8); Neutrophils % 57.8 % (37.0-80.0); Platelet Count 139 K/mm3 (142-424); Red Cell Distribution Width 13.7 % (11.5-17.5); White Blood Count 3.7 K/mm3 (4.8-10.8)
[2020-12-26 02:34] LABS: Bacteria,Urine Trace /lpf; Squamous Epithelial Cell,Urine Occasional #/hpf (0-5); WBC,Urine Occasional #/hpf (0-3)
[2020-12-26 02:41] LABS: Alanine Aminotransferase 12 U/L (12-78); Albumin Level 3.8 g/dl (3.5-5.0); Albumin/Globulin Ratio 1.5 (1.1-1.8); Alkaline Phosphatase 59 U/L (38-126); Anion Gap 12.5 mEq/L (5-15); Aspartate Amino Transferase 23 U/L (17-59); Bilirubin,Total 1.5 mg/dl (0.2-1.3); Blood Urea Nitrogen 13 mg/dl (9-20); Calcium 8.9 mg/dl (8.4-10.2); Carbon Dioxide 29 mmol/L (22.0-30.0); Chloride 103 mmol/L (98-107); Creatinine Clearance Estimated 111 mL/min (50-200); Estimated Glomerular Filt Rate 80 ml/min (>60); GFR (African American) 97 ML/MIN (>60); Globulin 2.5 g/dL (1.3-3.2); Glucose 113 mg/dl (74-100); Potassium 3.5 mmoL/L (3.5-5.1); Sodium 141 mmol/L (136-145); Total Protein,Serum 6.3 g/dl (6.3-8.2)
[2020-12-26 02:50] LABS: Ethyl Alcohol < 10 mg/dl (0-10)
[2020-12-26 03:05] LABS: Erythrocyte Sedimentation Rate 19 mm/hr (0-15)
[2020-12-26 03:08] VITALS: BP 110/73; PULSE 83; RESP 19; TEMP 36.8; O2SAT 98
== END 2020-12-26 03:10 | disposition home or self-care (01) ==
PROVIDERS: Emergency Provider Emergency Medicine; PCP Emergency Medicine
DX: M25.512 Pain in left shoulder (principal); M79.622 Pain in left upper arm; M25.562 Pain in left knee; M25.552 Pain in left hip; K21.9 Gastro-esophageal reflux disease without esophagitis
CPT/HCPCS: 71046; 80053; 81001; 84145; 85025; 85651; 96365; 96375; 99283

== ENCOUNTER 2021-05-12 05:52 | Emergency (ER) | payer OTHER, SELFPAY ==
[2021-05-12 05:50] VITALS: BP 134/95; PULSE 94; RESP 17; TEMP 36.5; O2SAT 96; BMI 27.4
--- NOTE | 2021-05-12 05:53 | ECG_ITS ---
APPROVED REPORT Exam: Resting ECG HR:94 bpm ECG Measurements Heart Rate 94 AXES MS 214 P 46 QRSd 94 QRS 17 QT 356 T 42 QTc 445 Conclusion Sinus rhythm with 1st degree AV block Otherwise normal ECG Electronically signed by : Mark Corado MD 05/12/2021 19:54:38
--- NOTE | 2021-05-12 06:06 | XR_ITS ---
PROCEDURE INFORMATION: Exam: XR Chest Exam date and time: 05/12/2021 6:06 AM Age: 50 years old Clinical indication: Pain; Shortness of breath; Chest pressure; Additional info: Cp, SOA TECHNIQUE: Imaging protocol: XR of the chest. Views: 2 views. COMPARISON: CR XR CHEST 2V 12/26/2020 2:11 AM FINDINGS: Lungs: Hyperinflation and interstitial prominence. Pleural spaces: No pleural effusion. Heart/Mediastinum: Normal configuration of the heart. Bones/joints: Stable compression deformities and mild degenerative change in the thoracic spine. When correlating with the previous study, no significant interval changes are present. IMPRESSION: Stable appearance of the chest, not significantly changed from 12/26/20.
[2021-05-12 06:30] VITALS: BP 140/85; PULSE 104; RESP 18; O2SAT 93
[2021-05-12 06:33] LABS: Coronavirus 19, PCR Not Detected (NotDetected); Influenza A, PCR Not Detected (NotDetected); Influenza B, PCR Not Detected (NotDetected)
--- NOTE | 2021-05-12 06:54 | HMH.EDCP ---
ED Disposition Clinical Impression: Chest pain Qualifiers: Chest pain type: unspecified Qualified Code(s): R07.9 - Chest pain, unspecified Disposition: Home, Self-Care Condition on Discharge: Good Instructions: DI for Atypical Chest Pain Additional Instructions: see card for follow up this week Referrals: Ronald Hoffman MD [Primary Care Provider] - - Critical Care Critical Care Time: No Attestation: On 05/12/21, the high probability of a clinically significant, sudden or life threatening deterioration of the following system(s) required my full and direct attention, intervention and personal management. The time I documented below is in addition to time spent performing reported procedures but includes the following listed in this critical care notation. Medical Decision Making - Medical Records Medical records reviewed: Yes: I reviewed the patient's medical records. - Aurelio Inquiry Pt receiving controlled substance: No Vital Signs: 05/12/21 05:50 05/12/21 06:30 Temperature 97.7 F Temperature Source Oral Pulse Rate 104 H Pulse Rate [Right] 94 H Respiratory Rate 17 18 Blood Pressure 140/85 Blood Pressure [Right Arm] 134/95 H Blood Pressure Mean [Right Arm] 108 Blood Pressure Source [Right Arm] Automatic Cuff 02 Sat by Pulse Oximetry 96 93 L Oxygen Delivery Method Room Air Room Air - Lab Data Lab results reviewed: Yes: I reviewed the patient's lab results. Lab Results 05/12/21 05:55: Troponin I < 0.01, C-Reactive Protein 2.1 05/12/21 05:55: Sodium 136, Potassium 3.1 L, Chloride 101, Carbon Dioxide 27, Anion Gap 11.1, BUN 8 L, Creatinine 0.90, Estimated Creat Clear 120, Estimated GFR 90, Est GFR ( Amer) 109, Glucose 165 H, Calcium 9.0, Magnesium 1.8, Total Bilirubin 1.8 H, Direct Bilirubin 0.1, Conjugated Bilirubin 0.0, Indirect Bilirubin 1.7 H, Unconjugated Bilirubin 1.7 H, AST 28, ALT 21, Alkaline Phosphatase 54, NT-Pro-B Natriuret Pep 43.6, Total Protein 6.4, Albumin 4.3 05/12/21 06:15: SARS-CoV-2 (PCR) Not detected, Influenza A Untype (PCR) Not detected, Influenza Type B (PCR) Not detected 05/12/21 06:35: WBC 4.1 L, RBC 4.78, Hgb 15.8, Hct 46.9, MCV 98.1 H, MCH 33.1 H, MCHC 33.7, RDW 14.1, Plt Count 154, MPV 8.0, Neut % (Auto) 57.5, Lymph % (Auto) 33.7, [place] % (Auto) 6.3, Eos % (Auto) 0.9, Baso % (Auto) 1.7, Neut # (Auto) 2.4, Lymph # (Auto) 1.4, [place] # (Auto) 0.3, Eos # (Auto) 0.0, Baso # (Auto) 0.1 Result diagrams: 05/12/21 06:35 05/12/21 05:55 Orders (Tests/Meds): ED MEDICATIONS Discontinued Medications Generic Name Dose Route Start Last Admin Trade Name Marcosq PRN Reason Stop Dose Admin Aspirin 324 mg 05/12/21 06:06 05/12/21 06:26 Aspirin 81mg Chewable Tablet PO 05/12/21 06:07 324 mg ONCE ONE Administration Sodium Chloride 1,000 mls @ 999 mls/hr 05/12/21 06:15 05/12/21 06:26 Sod Chlor 0.9% 1000ml Bag IV 05/12/21 07:15 999 mls/hr .Q1H1M KP Administration Nitroglycerin 0.4 mg 05/12/21 06:06 05/12/21 06:26 Nitroglycerin 0.4mg Sl Tablet SL 05/12/21 06:07 0.4 mg ONCE ONE Administration Nitroglycerin 1 gm 05/12/21 06:16 05/12/21 06:27 Nitroglycerin 1 Gm Ointment TD 05/12/21 06:17 1 gm ONCE ONE Administration Ondansetron HCl 4 mg 05/12/21 06:16 05/12/21 06:26 Ondansetron 4mg/2ml Vial IV 05/12/21 06:17 4 mg ONCE ONE Administration ORDERS Category Date Time Status C-Reactive Protein Stat Lab 05/12/21 05:55 Results Erythrocyte Sedimentation Rate Stat Lab 05/12/21 05:55 Received Procalcitonin Stat Lab 05/12/21 05:55 Results Troponin I Q3H Lab 05/12/21 09:15 Ordered Troponin I Q3H Lab 05/12/21 12:15 Ordered Troponin I Stat Lab 05/12/21 05:55 Results - Radiology Data #1 Image(s): Chest Image Reviewed: Yes I have reviewed radiologist's interpretation Preliminary Findings: Normal/NAD - ECG Data Tracing #1 Normal Sinus Rhythm: Yes Ischemic changes: non-specific ST-T wave changes M
--- NOTE | 2021-05-12 06:55 | PC.NURSE ---
ok to removed c-collar per md
[2021-05-12 07:20] LABS: Basophils # 0.1 K/mm3 (0-0.2); Basophils % 1.7 % (0.1-2.0); Eosinophils % 0.9 % (0.1-12.0); Hematocrit 46.9 % (42.0-52.0); Hemoglobin 15.8 g/dL (14.1-18.0); Lymphocytes # 1.4 K/mm3 (0.7-4.5); Lymphocytes % 33.7 % (10-50); Mean Corpuscular HGB Conc 33.7 g/dL (31.8-35.4); Mean Corpuscular Hemoglobin 33.1 pg (27.0-31.2); Mean Corpuscular Volume 98.1 fl (80-94); Monocytes # 0.3 K/mm3 (0.1-1.0); Monocytes % 6.3 % (1.7-9.3); Neutrophils # 2.4 K/mm3 (1.8-7.8); Neutrophils % 57.5 % (37.0-80.0); Platelet Count 154 K/mm3 (142-424); Red Blood Count 4.78 M/mm3 (4.60-6.20); Red Cell Distribution Width 14.1 % (11.5-17.5); White Blood Count 4.1 K/mm3 (4.8-10.8)
[2021-05-12 07:22] LABS: Alanine Aminotransferase 21 U/L (12-78); Albumin Level 4.3 g/dl (3.5-5.0); Alkaline Phosphatase 54 U/L (38-126); Anion Gap 11.1 mEq/L (5-15); Aspartate Amino Transferase 28 U/L (17-59); Bilirubin,Direct 0.1 mg/dl (0.0-0.4); Bilirubin,Indirect 1.7 mg/dL (0.0-0.9); Bilirubin,Total 1.8 mg/dl (0.2-1.3); Bilirubin,Unconjugated 1.7 mg/dL (0.0-1.1); Blood Urea Nitrogen 8 mg/dl (9-20); Carbon Dioxide 27 mmol/L (22.0-30.0); Chloride 101 mmol/L (98-107); Creatinine Clearance Estimated 120 mL/min (50-200); Estimated Glomerular Filt Rate 90 ml/min (>60); GFR (African American) 109 ML/MIN (>60); Glucose 165 mg/dl (74-100); Magnesium 1.8 mg/dl (1.6-2.3); Potassium 3.1 mmoL/L (3.5-5.1); Sodium 136 mmol/L (136-145); Total Protein,Serum 6.4 g/dl (6.3-8.2)
[2021-05-12 07:27] LABS: C-Reactive Protein 2.1 mg/L (0-4)
[2021-05-12 07:33] LABS: NT Pro Brain Natriuretic Pep. 43.6 pg/mL (0-125)
[2021-05-12 07:40] LABS: Troponin I < 0.01 ng/ml (0.00-0.034)
[2021-05-12 07:46] VITALS: BP 116/80; PULSE 103; RESP 17; TEMP 36.6; O2SAT 96
[2021-05-12 07:58] LABS: Erythrocyte Sedimentation Rate 7 mm/hr (0-15)
== END 2021-05-12 07:47 | disposition home or self-care (01) ==
PROVIDERS: Emergency Provider Emergency Medicine; PCP Emergency Medicine
DX: R07.9 Chest pain, unspecified (principal); R42 Dizziness and giddiness; K21.9 Gastro-esophageal reflux disease without esophagitis; Z20.822 Contact with and (suspected) exposure to COVID-19
CPT/HCPCS: 71046; 80048; 80076; 83735; 83880; 84145; 84484; 85025; 85651; 86140; 93005; 96365; 96375; 99284; C9803; J2405; U0003; U0005

== ENCOUNTER → 2022-05-24 11:00 | Outpatient (CLI) | payer OTHER, SELFPAY ==
[2022-05-24 18:55] LABS: Basophils % 0.8 % (0.1-2.0); Eosinophils # 0.1 K/mm3 (0.0-0.4); Eosinophils % 1.3 % (0.1-12.0); Hematocrit 46.1 % (42.0-52.0); Hemoglobin 16.3 g/dL (14.1-18.0); Lymphocytes # 1.7 K/mm3 (0.7-4.5); Lymphocytes % 31.1 % (10-50); Mean Corpuscular HGB Conc 35.4 g/dL (31.8-35.4); Mean Corpuscular Hemoglobin 32.1 pg (27.0-31.2); Mean Corpuscular Volume 90.7 fl (80-94); Mean Platelet Volume 8.2 fl (7.4-10.4); Monocytes # 0.3 K/mm3 (0.1-1.0); Monocytes % 5.6 % (1.7-9.3); Neutrophils # 3.3 K/mm3 (1.8-7.8); Neutrophils % 61.3 % (37.0-80.0); Platelet Count 223 K/mm3 (142-424); Red Blood Count 5.08 M/mm3 (4.60-6.20); Red Cell Distribution Width 13.6 % (11.5-17.5); White Blood Count 5.3 K/mm3 (4.8-10.8)
[2022-05-24 18:59] LABS: Alanine Aminotransferase 28 U/L (12-78); Albumin Level 4.7 g/dl (3.5-5.0); Albumin/Globulin Ratio 1.8 (1.1-1.8); Alkaline Phosphatase 83 U/L (38-126); Anion Gap 13.1 mEq/L (5-15); Aspartate Amino Transferase 32 U/L (17-59); Bilirubin,Total 1.8 mg/dl (0.2-1.3); Blood Urea Nitrogen 14 mg/dl (9-20); Calcium 9.2 mg/dl (8.4-10.2); Carbon Dioxide 30 mmol/L (22.0-30.0); Chloride 100 mmol/L (98-107); Chol/HDL Ratio 5.5 (1-3.5); Cholesterol 149 mg/dl (140-200); Estimated Glomerular Filt Rate 90 ml/min (>60); GFR (African American) 109 ML/MIN (>60); Globulin 2.6 g/dL (1.3-3.2); Glucose 105 mg/dl (74-100); HDL Cholesterol 27 mg/dl (40-60); Potassium 4.1 mmoL/L (3.5-5.1); Sodium 139 mmol/L (136-145); Total Protein,Serum 7.3 g/dl (6.3-8.2); Triglycerides 307 mg/dl (30-150); VLDL Cholesterol 61 mg/dL (0-40)
[2022-05-24 19:10] LABS: Direct LDL Cholesterol 66.94 mg/dL (100-129)
[2022-05-24 19:16] LABS: Free T4 (Free Thyroxine) 1.12 ng/dl (0.78-2.19)
[2022-05-24 19:30] LABS: Thyroid Stimulating Hormone 4.25 uIU/mL (0.465-4.68)
== END ==
PROVIDERS: PCP Emergency Medicine; Visit Provider Emergency Medicine
DX: R53.83 Other fatigue (principal); T78.40XA Allergy, unspecified, initial encounter; R82.90 Unspecified abnormal findings in urine; E55.9 Vitamin D deficiency, unspecified; Z12.5 Encounter for screening for malignant neoplasm of prostate
CPT/HCPCS: 80053; 80061; 82306; 84439; 84443; 85025; 87086; G0103

== ENCOUNTER → 2022-05-28 11:36 | Outpatient (CLI) | payer OTHER, SELFPAY ==
[2022-05-29 10:26] LABS: Prostate Specific Ag 5.7 ng/mL (0.0-4.0)
[2022-06-04 20:21] LABS: Hep A Ab, IgM NEGATIVE; Hepatitis B Surface Antigen NEGATIVE
[2022-06-04 20:22] LABS: Hepatitis B Core Antibody IgM NEGATIVE; Hepatitis C Antibody <0.1
== END ==
PROVIDERS: PCP Emergency Medicine; Visit Provider Emergency Medicine
DX: R74.8 Abnormal levels of other serum enzymes (principal); R97.20 Elevated prostate specific antigen [PSA]
CPT/HCPCS: 36415; 80074; 84153; 84154

== ENCOUNTER → 2022-06-17 07:50 | Outpatient (CLI) | payer OTHER, SELFPAY ==
--- NOTE | 2022-06-17 07:50 | US_ITS ---
FINAL REPORT CLINICAL HISTORY: liver enzymes elevated FINDINGS: Sonographic images of the right upper quadrant were obtained. The pancreas is partially obscured.The liver has an unremarkable appearance.The gallbladder appears normal without evidence of gallstones.There is no evidence of biliary ductal dilatation.The common duct measures 2 mm. Limited images of the right kidney are unremarkable. IMPRESSION: Unremarkable right upper quadrant ultrasound. Reviewed, Interpreted and Dictated by Matty Edmond III, MD Transcribed by Shelbie Pradhan Authenticated and [facility]
== END ==
PROVIDERS: PCP Emergency Medicine; Visit Provider Emergency Medicine
DX: R74.8 Abnormal levels of other serum enzymes (principal)
CPT/HCPCS: 76705

== ENCOUNTER 2024-12-05 08:01 | Emergency (ER) | payer OTHER, SELFPAY ==
[2024-12-05] VITALS (8 sets, daily range): BP systolic 114–134; BP diastolic 74–90; PULSE 71–90; RESP 13–23; TEMP 36.9; O2SAT 95–99; BMI 24.7
--- NOTE | 2024-12-05 07:52 | ECG_ITS ---
APPROVED REPORT Exam: Resting ECG HR:80 bpm ECG Measurements Heart Rate 80 AXES IA 203 P 68 QRSd 94 QRS 79 QT 351 T 64 QTc 387 Conclusion SINUS RHYTHM NORMAL ECG UNCONFIRMED REPORT Electronically signed by : Dragan Barboza, 12/05/2024 15:49:18
--- NOTE | 2024-12-05 08:09 | XR_ITS ---
FINAL REPORT CLINICAL HISTORY: Shortness of breath COMPARISON: 12/26/2020 FINDINGS: A single frontal view of the chest was obtained. No acute pulmonary opacity is present. There is no evidence of effusion or pneumothorax. Mediastinum is unremarkable. Heart size is normal. IMPRESSION: No acute abnormality. Reviewed, Interpreted and Dictated by José Thomas MD Transcribed by Georgette Monroe Authenticated and [facility]
--- NOTE | 2024-12-05 08:10 | [facility].EDCP ---
Discharge Plan Disposition Patient Disposition: Home, Self-Care Referrals Follow up/Referrals: Frank Ponce II, MD [Staff Physician, Gastroenterology] - See instructions Frank Rolle MD [Staff Physician, Cardiology] - See instructions Provider,MD Rozina [Primary Care Provider, Medical] - See instructions Activity Restrictions/Add. Instructions Additional Instructions/Restrictions: Regarding her chest pain I would like for you to follow-up with her presentation specialist Dr. Rolle. And regarding her chronic hyperbilirubinemia that is mildly worse than it has been in the past I recommend that you follow-up with Dr. Ponce to look into this further. Clinical Impressions Clinical Impression: Chest pain, Hyperbilirubinemia Print Language Print Language: Scottish Discharge ED Provider: Lauryn Barboza General Chief Complaint: Chest Pain Stated Complaint: chest pain Time Seen by Provider: 12/05/24 08:05 Mode of Arrival: EMS Source of Information: Patient Description of Symptoms (Recalled from ER Triage Doc. by RN): Patient brought in by EMS c/o chest pain that started around 0600. 9/10 left sided chest pain when ems arrived. Pt was given aspirin in route but declined Nitro. Pt states his pain is now 3/10. Pt declines any cardiac hx. History of Present Illness HPI narrative: 54-year-old with no significant past medical history presents today with left-sided chest pain that started at around 6 AM left anterior chest wall discomfort no radiation no dyspnea no diaphoresis associated with this it lasted about 1 hour and has spontaneously resolved. He has no chest pain at the moment. No fevers chills etc. He has had 1 episode like this in the past and was told it was in stress. No further cardiac workup in the past including no stress test heart cath etc. Related Data Allergies Allergy/AdvReac Type Severity Reaction Status Date / Time No Known Allergies Allergy Verified 12/05/24 08:01 [facility] Disclaimer: The information contained in this section may have been updated after the patient was seen, as this information can be updated by other users. Medical History (Updated 12/05/24 @ 09:41 by Lauryn Barboza MD) Acute left otitis media Tinnitus, left ear Ear popping Social History Smoking Status: Never smoker alcohol intake: never counseling provided: provider counseling substance use type: denies use current occupational status: unemployed Travel in the last 8 weeks?: None housing: house caffeine: Yes Have you lived/traveled outside [place] in past 30 days?: No Contact w/someone who lives/traveled outside US past 30 days?: No Exposure to someone with infectious disease in past 14 days?: No Do you have a fever (greater than 100.4 F or 38 C)?: No Have you tested positive for COVID-19?: No Exposed to someone with COVID-19 in past 14 days?: No Do you have a sore throat?: No Do you have a cough?: No Do you have any weakness?: No Do you have any diarrhea?: No Are you experiencing any unusual bleeding?: No Do you have any muscle aches/pain?: No Do you have any abdominal pain?: No Are you experiencing loss of taste or smell?: No Other Medical History Have you received the Flu Vaccine for this season: No Have you received the Pneumonia Vaccine: No ROS Obtained: Yes All systems reviewed & no additional complaints except as documented Physical Exam General General appearance: alert Respiratory Respiratory exam: Present normal lung sounds bilaterally Cardiovascular Cardiovascular exam: Present regular rate and normal rhythm Neurological Exam Neurological exam: Present alert and oriented X3 HEART Score HEART Score HEART Score assessment performed?: Yes History (anamnesis): Slightly suspicious ECG: Normal Age: 45-65 years Risk factors: No known risk factors Troponin: </= normal limit HEART Score: 1 Critical Care Critical Care Time Critical Care Time: No Medical Decision Making Aurelio Inquiry Pt receiving controlled substance: No Vital Signs Vital Signs: 12/05/24 07:54 12/05/24 08:00 12/05/24 08:19 Pulse Rate 87 80 Pulse Rate [Right Brachial] 90 Respiratory Rate 18 16 Blood Pressure 134/90 Blood Pressure [Right Arm] 124/78 Blood Pressure Mean [Right Arm] 93 Blood Pressure Source [Right Arm] Automatic Cuff Blood Pressure Position [Right Arm] Sitting 02 Sat by Pulse Oximetry 95 97 Oxygen Delivery Method Room Air 12/05/24 08:30 12/05/24 09:00 12/05/24 09:30 Pulse Rate 79 75 79 Pulse Rate [Right Brachial] Respiratory Rate 23 13 15 Blood Pressure 114/75 121/75 122/83 Blood Pressure [Right Arm] Blood Pressure Mean [Right Arm] Blood Pressure Source [Right Arm] Blood Pressure Position [Right Arm] 02 Sat by Pulse Oximetry 98 96 97 Oxygen Delivery Method 12/05/24 10:00 Pulse Rate 71 Pulse Rate [Right Brachial] Respiratory Rate 13 Blood Pressure 119/75 Blood Pressure [Right Arm] Blood Pressure Mean [Right Arm] Blood Pressure Source [Right Arm] Blood Pressure Position [Right Arm] 02 Sat by Pulse Oximetry 98 Oxygen Delivery Method Lab Data Lab results reviewed: Yes I reviewed the patient's lab results. Labs: Lab Results 12/05/24 07:45: WBC 5.0, RBC 4.66, Hgb 15.2, Hct 40.7 L, MCV 87.3, MCH 32.6 H, MCHC 37.3 H, RDW 13.2, Plt Count 143, MPV 9.9, Neut % (Auto) 69.9, Lymph % (Auto) 21.6, Ness % (Auto) 7.3, Eos % (Auto) 0.6, Baso % (Auto) 0.4, Neut # (Auto) 3.5, Lymph # (Auto) 1.1, Ness # (Auto) 0.4, Eos # (Auto) 0.0, Baso # (Auto) 0.0, Sodium 137, Potassium 3.9, Chloride 104, Carbon Dioxide 29, Anion Gap 7.9, BUN 14, Creatinine 0.90, Estimated Creat Clear 103, Estimated GFR 89, Est GFR ( Amer) 107, Glucose 111 H, Calcium 9.0, Total Bilirubin 2.2 H, AST 25, ALT 15, Alkaline Phosphatase 78, Troponin I < 0.01, Total Protein 7.0, Albumin 4.5, Globulin 2.5, Albumin/Globulin Ratio 1.8, HCV Ab PEYTON w/Rflx PCR Qn Negative, HIV Ag/Ab Combo Qual Negative 12/05/24 10:17: Troponin I < 0.01 12/05/24 07:45 12/05/24 07:45 Response Orders (Tests/Meds): ORDERS Category Date Time Status CXR --portable [XR chest portable] Stat Exams 12/05/24 08:09 Completed CBC w/Auto Diff [Complete Blood Count Auto Diff] Stat Lab 12/05/24 07:45 Completed CMP [Comprehensive Metabolic Panel] Stat Lab 12/05/24 07:45 Completed HIV Combo Stat Lab 12/05/24 07:45 Completed Hepatitis C Ab Qual. W/ RFX Stat Lab 12/05/24 07:45 Completed Trop I [Troponin I] Stat Lab 12/05/24 07:45 Completed Troponin I Q3H Lab 12/05/24 10:17 Completed Troponin I Q3H Lab 12/05/24 14:15 Ordered ECG Data Tracing #1: Attestation: I reviewed this ECG and interpreted as documented below: ECG Narrative: Ventricular rate of 80 normal sinus rhythm no acute ischemic changes noted normal axis no significant conduction abnormality MDM Narrative Medical Decision Narrative: Very well-appearing 54-year-old male with a normal EKG nonischemic who presents today with 1 hour of chest pain that is now resolved. Low suspicion heart score is 1 will not workup pulmonary ballismus him further as he is asymptomatic at the moment. Will get serial troponins has been placed in ED observation status at 8:12 AM will likely refer him to outpatient cardiology for further noninvasive diagnostic workup including stress test etc. Reassessment 1117 serial troponins are unremarkable on my serial clinical assessments patient remains asymptomatic. I have given him follow-up with cardiology. Of note patient's bilirubin level is 2.2 this is slightly more elevated than it has been in the past he has never had this worked up and I have given him a referral to our GI doctor to have this looked into further. Patient was discharged in stable condition no cardiopulmonary emergency identified at this point.
[2024-12-05 08:14] LABS: Albumin Level 4.5 g/dl (3.5-5.0); Chloride 104 mmol/L (98-107)
[2024-12-05 08:15] LABS: Potassium 3.9 mmoL/L (3.5-5.1); Sodium 137 mmol/L (136-145)
[2024-12-05 08:17] LABS: Alanine Aminotransferase 15 U/L (12-78); Anion Gap 7.9 mEq/L (5-15); Aspartate Amino Transferase 25 U/L (17-59); Blood Urea Nitrogen 14 mg/dl (9-20); Carbon Dioxide 29 mmol/L (22.0-30.0); Creatinine Clearance Estimated 103 mL/min (50-200); Creatinine,Serum 0.90 mg/dl (0.66-1.25); Estimated Glomerular Filt Rate 89 ml/min (>60); GFR (African American) 107 ML/MIN (>60); Hematocrit 40.7 % (42.0-52.0); Hemoglobin 15.2 g/dL (14.1-18.0); Immature Granulocytes % 0.2 %; Mean Corpuscular HGB Conc 37.3 g/dL (31.8-35.4); Mean Corpuscular Hemoglobin 32.6 pg (27.0-31.2); Mean Corpuscular Volume 87.3 fl (80-94); Nucleated Red Blood Cells % 0 %; Platelet Count 143 K/mm3 (142-424); Red Blood Count 4.66 M/mm3 (4.60-6.20); Red Cell Distribution Width-SD 41.7 fL; White Blood Count 5.0 K/mm3 (4.8-10.8)
[2024-12-05 08:18] LABS: Albumin/Globulin Ratio 1.8 (1.1-1.8); Alkaline Phosphatase 78 U/L (38-126); Bilirubin,Total 2.2 mg/dl (0.2-1.3); Calcium 9.0 mg/dl (8.4-10.2); Globulin 2.5 g/dL (1.3-3.2); Glucose 111 mg/dl (74-100); Total Protein,Serum 7.0 g/dl (6.3-8.2)
[2024-12-05 08:34] LABS: Troponin I < 0.01 ng/ml (0.00-0.034)
[2024-12-05 09:21] LABS: Hepatitis C Ab Qual. W/ RFX NEGATIVE (Negative)
[2024-12-05 11:03] LABS: Troponin I < 0.01 ng/ml (0.00-0.034)
== END 2024-12-05 11:36 | disposition home or self-care (01) ==
PROVIDERS: Emergency Provider Student in an Organized Health Care Education/Training Program
DX: R07.9 Chest pain, unspecified (principal); E80.6 Other disorders of bilirubin metabolism
CPT/HCPCS: 71045; 80053; 84484; 85025; 86803; 87389; 93005; 99284

== ENCOUNTER 2024-12-06 15:10 | Outpatient (CLI) | payer OTHER, SELFPAY ==
[2024-12-06 16:45] LABS: Microscopic, Urine URINE MICROSCOPIC (MICROSCOPIC)
[2024-12-06 18:12] LABS: Alanine Aminotransferase 14 U/L (12-78); Albumin Level 5.0 g/dl (3.5-5.0); Alkaline Phosphatase 83 U/L (38-126); Aspartate Amino Transferase 26 U/L (17-59); Bilirubin,Direct 0.4 mg/dl (0.0-0.4); Bilirubin,Indirect 2.2 mg/dL (0.0-0.9); Bilirubin,Total 2.6 mg/dl (0.2-1.3); Bilirubin,Unconjugated 2.2 mg/dL (0.0-1.1); Cholesterol 192 mg/dl (140-200); HDL Cholesterol 42 mg/dl (40-60); Total Protein,Serum 7.5 g/dl (6.3-8.2); Triglycerides 209 mg/dl (30-150); Uric Acid 5.7 mg/dl (3.5-8.5)
[2024-12-06 18:26] LABS: Free T4 (Free Thyroxine) 1.05 ng/dl (0.78-2.19)
[2024-12-06 18:34] LABS: Bilirubin,Urine Negative (Negative); Color,Urine YELLOW (Yellow); Glucose,Urine (UA) Negative (Negative); Ketones,Urine Negative (Negative); Leukocyte Esterase,Urine Negative (Negative); PH,Urine 6.0 (5.0-8.5); Protein,Urine Negative (Negative); Specific Gravity, Urine >= 1.030 (1.005-1.030); Urobilinogen,Urine 1.0 EU/dl (0.2)
[2024-12-06 18:44] LABS: Thyroid Stimulating Hormone 1.77 uIU/mL (0.465-4.68)
[2024-12-06 19:03] LABS: Vitamin B12 335 pg/mL (239-931)
[2024-12-06 20:05] LABS: Amorphous Sediment,Urine 4+ /lpf
[2024-12-06 20:44] LABS: Hemoglobin A1C 4.9 % (4.0-6.0)
[2024-12-06 20:57] LABS: 25-OH Vitamin D, Total 47.0 ng/mL (30-100)
[2024-12-07 14:18] LABS: RA Latex Turbid. <10.0 IU/mL (<14.0)
[2024-12-07 15:40] LABS: Antinuclear Antibodies, IFA Negative (.)
== END 2024-12-06 23:59 | disposition home or self-care (01) ==
LOC: LAB.DROPOF 12-10 15:11
PROVIDERS: PCP Nurse Practitioner Family; Visit Provider Nurse Practitioner Family
DX: K21.9 Gastro-esophageal reflux disease without esophagitis (principal); E80.6 Other disorders of bilirubin metabolism; R97.20 Elevated prostate specific antigen [PSA]; D18.01 Hemangioma of skin and subcutaneous tissue; Z76.89 Persons encountering health services in other specified circumstances; R53.83 Other fatigue; E55.9 Vitamin D deficiency, unspecified; E11.9 Type 2 diabetes mellitus without complications; Z13.1 Encounter for screening for diabetes mellitus; I10 Essential (primary) hypertension; G47.33 Obstructive sleep apnea (adult) (pediatric)
CPT/HCPCS: 80061; 80076; 81001; 82306; 82607; 83036; 84439; 84443; 84550; 85651; 86038; 86225; 86235; 86431; 87086; G0103

== ENCOUNTER 2024-12-25 06:15 | Outpatient (CLI) | payer OTHER, SELFPAY ==
--- NOTE | 2024-12-25 | CA_ITS ---
APPROVED REPORT Exam: Pharmacologic Technologist: Vaishali Bravo Ht: 5 ft 9 in Wt: 177 lbs BSA: 1.96 m2 HR: 76 bpm BP: 98/68 mmHg Stress Test Details Test: Lexiscan HR Resting HR: 76 bpm Max Heart Rate (APMHR): 168.011629 bpm Max HR Achieved: 124 bpm Target HR (85% APMHR): 142.601011 bpm % of APMHR: 73.81 Recovery HR: 100 bpm BP Resting BP: 98.0/68.0 mmHg Max BP: 120.0/79.0 mmHg Recovery BP: 113.0/79.0 mmHg ECG Resting ECG: Sinus rhythm with baseline ST T changes. Stress ECG Conclusion Lungs CTA prior to start. Symptoms: None Arrhythmias/Ectopy: Noine ST-T Changes: Less than 0.[address] T changes. Conclusion: Non-diagnostic Lexiscan ECG. Electronically signed by : Fabi Davila MD 12/26/2024 00:19:27
--- NOTE | 2024-12-25 06:30 | NM_ITS ---
APPROVED REPORT Exam: Nuclear Stress Test Indication: fm hx, c.p., sob, palpitations, fatigue Patient Location: Outpatient Stress Tech: Vaishali Bravo OR Tech:Estella Gambino STACEYTracey RT (R)(N)(M) Ht: 5 ft 9 in Wt: 172 lbs HR: 76 bpm BP: 98/68 mmHg BSA: 1.94 m2 TID: 1.17 BMI: 25.3 History: fm hx, c.p., sob, palpitations, fatigue Procedure: Patient received 0.0 mg of intravenous Lexiscan, resting heart rate 76 bpm, resting blood pressure 98/68 mmHg, with Lexiscan maximum heart rate achieved was 124 bpm which is % of the maximum predicted heart rate and blood pressure was 97/60 mmHg. With Lexiscan, patient denied any complaint of chest pain. Cardiac Stress and Resting SPECT Images: Cardiac Stress and Resting SPECT images were obtained using technetium 99m Myoview 31.9 mCi stress and 10.43 mCi at rest. Resting and stress imaging in supine and prone positions demonstrate no evidence of fixed or reversible perfusion defects. Gated imaging demonstrates normal global and regional LV systolic function. LVEF is calculated at 57%. Conclusion: No evidence of fixed or reversible perfusion defects. Gated imaging demonstrates normal global and regional LV systolic function. LVEF is calculated at 57%. Electronically signed by : Fabi Davila MD 12/25/2024 13:28:36
--- NOTE | 2024-12-25 08:45 | CA_ITS ---
APPROVED REPORT EXAM: Comprehensive 2D, Doppler, and color-flow Echocardiogram Slubber Runner: RADHA Grier, RVS Ht: 5 ft 9 in Wt: 177lbs BSA: 1.96 BP: 95/63 mmHg Indications: palpitations,dyspnea, fatigue 2D Dimensions Left Atrium 2.21 cm M: 3.0 - 4.0 M-Mode Dimensions RVDd 2.82 cm (0.9-2.6) LA Diam 3.20 cm (1.9-4.0) LVDd 4.83 cm (3.5-5.7) LVDs 3.42 cm (3.5-5.7) IVSd 0.68 cm (0.6-1.1) PWd 0.68 cm (0.6-1.1) EF (Teich) 55.90% EPSs 0.27 cm FS 29.20% EDV (Teich) 109.10 mL TAPSE 1.91 (<1.7) ESV (Teich) 48.10 mL LV Diastology E Decel Time 353 (160-240 msec) E/A Ratio 1.15 MED A' 9.00 cm/s LAT A' 12.60 cm/s Aortic Valve LAUREN Index 1.41 cm2/m2 AoV Peak Richard. 95.0 (50-130 cm/s) AO Peak GR. 3.60 mmHg AO Mean GR. 1.80 (<5 mmHg) AO VTI 20.3 (18-25 cm) LAUREN (VTI) 2.84 (2.5-4.5 cm2) Mitral Valve MV A Velocity 52.0 (40-130 cm/s) E/A Ratio 1.15 Left Ventricle The left ventricle is normal size. Left ventricular systolic function is normal. The left ventricular ejection fraction is within the normal range. There is normal left ventricular wall thickness. There is normal LV segmental wall motion. The left ventricular diastolic function is normal. LVEF is 50-55% Right Ventricle The right ventricle is mildly dilated. The right ventricular systolic function is normal. Atria The left atrium is mildly dilated. The right atrium is mildly dilated. There is no color Doppler evidence of interatrial shunt. Aortic Valve The aortic valve opens well. There is no hemodynamically significant aortic valvular stenosis. No aortic regurgitation is present. Mitral Valve The mitral valve is normal in structure. No evidence of mitral valve stenosis. Trace mitral regurgitation is present. Tricuspid Valve The tricuspid valve leaflets are thin and pliable. Mild tricuspid regurgitation. RVSP is 20-25 mmHg. Pulmonic Valve The pulmonary valve is grossly normal in structure. Trace pulmonic valve regurgitation is present. Great Vessels The aortic root is normal in size. IVC is normal in size and collapses >50% with inspiration. Pericardium There is no pericardial effusion. Other Information Study Quality: Fair Conclusion Normal biventricular systolic function. Mild RV dilation. Mild biatrial dilation. Mild TR. Electronically signed by : Fabi Davila MD 12/25/2024 12:39:32
[2024-12-25] MEDS: SODIUM CHLORIDE 0.9% 10ML SYR (RAD ONLY) 10 ML IV ×2 (09:43)
[2024-12-25] MEDS: ISOTOPE MYOVIEW (PER STUDY) 1 DOSE IV (09:43)
== END 2024-12-25 23:59 | disposition home or self-care (01) ==
LOC: RAD 06:16
PROVIDERS: PCP Nurse Practitioner Family; Visit Provider Nurse Practitioner
DX: I07.1 Rheumatic tricuspid insufficiency (principal); Z82.49 Family history of ischemic heart disease and other diseases of the circulatory system
CPT/HCPCS: 78452; 93017; 93018; 93306; A9502; J2785

== ENCOUNTER 2025-01-12 10:29 | Outpatient (CLI) | payer OTHER, SELFPAY | END 2025-01-12 23:59 | disposition home or self-care (01) | LOC: RT 10:30 | PROVIDERS: PCP Nurse Practitioner Family; Visit Provider Nurse Practitioner | DX: I49.1 Atrial premature depolarization (principal); I47.19 Other supraventricular tachycardia; I49.3 Ventricular premature depolarization | CPT/HCPCS: 93270 ==